=== PATIENT | female | born 1985 ===

== ENCOUNTER 2021-04-09 20:12 | Emergency (ER) | payer SELFPAY ==
[2021-04-09 21:33] VITALS: BP 128/73
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
--- NOTE | 2021-04-09 22:07 | XRay Report ---
CERVICAL SPINE 3 VIEWS INDICATION / CLINICAL INFORMATION: neck injury. COMPARISON: None available. FINDINGS: VERTEBRAE: No acute fracture. No significant malalignment. DISC SPACES / FACET JOINTS:No significant abnormality. PARASPINAL SOFT TISSUES:No significant abnormality. ADDITIONAL FINDINGS: None. Signer Name: Nayan Howell MD Signed: 04/09/2021 10:03 PM Workstation Name: [id number]
== END 2021-04-09 22:34 | disposition home or self-care (01) ==
LOC: ED 20:12
DX: S16.1XXA Strain of muscle, fascia and tendon at neck level, initial encounter (principal); V49.49XA Driver injured in collision with other motor vehicles in traffic accident, initial encounter; X58.XXXA Exposure to other specified factors, initial encounter; Y93.89 Activity, other specified; Y92.89 Other specified places as the place of occurrence of the external cause; Y99.8 Other external cause status
CPT/HCPCS: 72040; 99283